=== PATIENT | male | born 1995 | race Caucasian/White ===

== ENCOUNTER 2023-04-10 10:24 | Emergency (ER) | payer MEDICAID ==
[~2023-04-10] VITALS: Ht 160 cm; Wt 56.8 kg
[2023-04-10 10:27] VITALS: TEMP 98.5
[2023-04-10] MEDS ORDERED: SODIUM CHLORIDE 0.9% 1,000 ML IV ONE ×2 (11:30→12:30)
[2023-04-10] MEDS ORDERED: ONDANSETRON HCL 4 MG/2 ML VIAL IVP ONE (11:30)
[2023-04-10 11:49] LABS: BASOPHILS % (AUTO) 0.6 % (0.0-2.0); EOSINOPHILS % (AUTO) 1.2 % (1.0-6.0); HEMATOCRIT 43.2 % (41-53); HEMOGLOBIN 14.8 g/dL (13.5-17.5); LYMPHOCYTES # (AUTO) 1.3 K/uL (1.0-4.8); LYMPHOCYTES % (AUTO) 12.1 % (22.0-44.0); MEAN CORPUSCULAR HEMOGLOBIN 29.5 pg (26.0-34.0); MEAN CORPUSCULAR HGB CONC 34.2 G/dL (31.0-37.0); MEAN CORPUSCULAR VOLUME 86 fL (80-100); MONOCYTES # (AUTO) 0.6 K/uL (0.1-1.0); MONOCYTES % (AUTO) 5.5 % (2.0-9.0); NEUTROPHILS # (AUTO) 8.8 K/uL (1.8-7.7); NEUTROPHILS % (AUTO) 80.6 % (40.0-70.0); PLATELET COUNT (AUTO) 331 K/uL (150-450); RED BLOOD CELL COUNT(AUTO) 5.01 MIL/uL (4.50-5.90); RED CELL DISTRIBUTION WIDTH 13.4 % (11.5-14.5)
[2023-04-10 11:58] LABS: ANION GAP 4 mmol/L (8-16); CALCIUM, TOTAL 9.3 mg/dL (8.8-10.5); CARBON DIOXIDE 31 mmol/L (22-29); CHLORIDE 101 mmol/L (98-107); GLOMERULAR FILTR. RATE CALC > 60 mL/min (>60); GLUCOSE,RANDOM 97 mg/dL (70-110); POTASSIUM 3.6 mmol/L (3.5-5.1); SODIUM SERUM 136 mmol/L (136-145); UREA NITROGEN, BLOOD 15 mg/dL (7-18)
[2023-04-10 12:04] LABS: ALANINE AMINOTRANSFERASE 24 U/L (12-78); ALBUMIN 3.3 g/dL (3.4-5.0); ALKALINE PHOSPHATASE 95 U/L (46-116); ASPARTATE AMINOTRANSFERASE 10 U/L (15-37); BILIRUBIN,TOTAL 0.3 mg/dL (0.1-1.0); LIPASE 18 U/L (16-77); TOTAL PROTEIN, SERUM 7.3 g/dL (6.4-8.2)
[2023-04-10 12:06] LABS: TROPONIN I-HIGH SENSITIVITY 14 ng/L (<76)
[2023-04-10 12:55] LABS: APPEARANCE,URINE CLEAR (CLEAR); BILIRUBIN,URINE NEGATIVE (NEGATIVE); COLOR,URINE YELLOW (YELLOW); GLUCOSE, URINE (UA) NEGATIVE (NEGATIVE); KETONES,URINE NEGATIVE (NEGATIVE); LEUKOCYTE ESTERASE ,URINE TRACE (NEGATIVE); NITRATE,URINE NEGATIVE (NEGATIVE); OCCULT BLOOD,URINE NEGATIVE (NEGATIVE); PROTEIN,URINE 30-70 mg/dL (NEGATIVE); SPECIFIC GRAVITIY, URINE 1.037 (1.003-1.030); UROBILINOGEN,URINE <=1.0 mg/dL (<=1.0)
[2023-04-10 13:02] LABS: ALCOHOL, URINE DRUG SCREEN NEGATIVE (NEGATIVE); AMPHET/METH SCREEN,URINE POSITIVE (NEGATIVE); BARBITURATE SCREEN, URINE NEGATIVE (NEGATIVE); BENZODIAZEPINES SCREEN,URINE NEGATIVE (NEGATIVE); CANNABINOID SCREEN,URINE NEGATIVE (NEGATIVE); COCAINE SCREEN,URINE NEGATIVE (NEGATIVE); METHADONE SCREEN, URINE NEGATIVE (NEGATIVE); OPIATE SCREEN,URINE NEGATIVE (NEGATIVE); PHENCYCLIDINE SCREEN,URINE NEGATIVE (NEGATIVE)
[2023-04-10 13:09] LABS: BACTERIA,URINE None Seen /HPF (None Seen); CALCIUM OXALATE CRYSTALS,UR Rare /LPF (None Seen); RBC,URINE 0-2 /HPF (0-2); WBC,URINE 0-2 /HPF (0-5)
[2023-04-10 13:25] VITALS: BP 138/84; PULSE 87; RESP 18
[2023-04-10] MEDS ORDERED: FAMO20 PO (13:37)
== END 2023-04-10 13:50 | disposition home or self-care (01) ==
LOC: EMS 10:40
DX: R19.7 Diarrhea, unspecified (principal); R11.2 Nausea with vomiting, unspecified; F15.90 Other stimulant use, unspecified, uncomplicated; R03.0 Elevated blood-pressure reading, without diagnosis of hypertension; Z87.891 Personal history of nicotine dependence
CPT/HCPCS: 99285; 74176; 96374; 71045; 96361; 80053; 81001; 83690; 84484; 85025; 36415; 93005; 80307; J2405; J7030

== ENCOUNTER 2025-04-18 02:48 | Emergency (ER) | payer MEDICAID, OTHER ==
[~2025-04-18] VITALS: Ht 160 cm; Wt 70.5 kg
[~2025-04-18 02:48] MED LIST: FAMO20 PO
[2025-04-18 02:59] VITALS: TEMP 98.2
[2025-04-18] MEDS ORDERED: 0.9% SODIUM CHLORIDE 10 ML SYRINGE IVP PRN (03:00)
[2025-04-18 03:22] LABS: PLATELET COUNT (AUTO) 362 K/uL (150-450); RED BLOOD CELL COUNT(AUTO) 5.55 MIL/uL (4.50-5.90); RED CELL DISTRIBUTION WIDTH 13.7 % (11.5-14.5); WHITE BLOOD COUNT (AUTO) 15.9 K/uL (4.5-11.0)
[2025-04-18 03:28] LABS: CALCIUM, TOTAL 9.0 mg/dL (8.8-10.5); CREATININE 0.79 mg/dL (0.60-1.30); GLOMERULAR FILTR. RATE CALC > 60 mL/min (>60); GLUCOSE,RANDOM 92 mg/dL (70-110); SODIUM SERUM 139 mmol/L (136-145); UREA NITROGEN, BLOOD 11 mg/dL (7-18)
[2025-04-18 03:33] LABS: ASPARTATE AMINOTRANSFERASE 16 U/L (15-37); CREATINE KINASE, TOTAL ONLY 127 U/L (39-308); TOTAL PROTEIN, SERUM 9.1 g/dL (6.4-8.2)
[2025-04-18 03:38] LABS: LACTIC ACID 1.2 mmol/L (0.4-2.0)
[2025-04-18 03:43] VITALS: BP 143/100; PULSE 116; RESP 20; O2SAT 98
[2025-04-18] MEDS: LIDOCAINE/PF 1% 2 ML VIAL IM ONE (03:56)
[2025-04-18] MEDS: SULFAMETHOX/TRIMETH DS 800-160 MG/TABLET PO ONE (03:56)
[2025-04-18] MEDS: CefTRIAXone SODIUM 1 GM/VIAL IM ONE (03:56)
[2025-04-18] MEDS ORDERED: CEPH-558 PO (03:59)
[2025-04-18] MEDS ORDERED: SULF-261 PO (03:59)
[2025-04-18] MEDS: METOPROLOL TARTRATE 25 MG TABLET PO ONE (04:00)
== END 2025-04-18 04:24 | disposition home or self-care (01) ==
LOC: EMS 02:54
DX: F15.10 Other stimulant abuse, uncomplicated (principal); L03.113 Cellulitis of right upper limb; I10 Essential (primary) hypertension; Z87.891 Personal history of nicotine dependence; Z79.899 Other long term (current) drug therapy
CPT/HCPCS: 99284; 80048; 80076; 82550; 83605; 85025; 87040; 36415; 93005; 96372; 84145; J0696; J3490